=== PATIENT | female | born 1990 | race Native Hawaiian/Other Pacific Islander ===

== ENCOUNTER 2022-01-14 12:37 | Emergency (ER) | payer OTHER ==
[~2022-01-14] VITALS: Ht 170.2 cm; Wt 163.3 kg
[2022-01-14 12:50] VITALS: TEMP 97.8
[2022-01-14 14:17] LABS: PLATELET COUNT 290 K/uL (152-353)
[2022-01-14 15:51] VITALS: BP 129/87
== END 2022-01-14 15:51 | disposition home or self-care (01) ==
LOC: ED 12:37
PROVIDERS: Emergency Medicine
DX: B34.9 Viral infection, unspecified (principal); Z20.822 Contact with and (suspected) exposure to COVID-19
CPT/HCPCS: 80053; 85027; 87502; 87635; 87651; 99283; U0003

== ENCOUNTER 2023-02-26 13:18 | Day surgery (SDC) | payer OTHER ==
[~2023-02-26] VITALS: Ht 165.1 cm; Wt 68.0 kg
== END 2023-02-26 16:30 | disposition home or self-care (01) ==
LOC: OR 13:18
PROVIDERS: ATTEND Internal Medicine Gastroenterology
PROC: 0D748DZ Dilation of Esophagogastric Junction with Intraluminal Device, Via Natural or Artificial Opening Endoscopic (ICD-10-PCS; principal; 2023-02-26)
PROC: 0DB78ZX Excision of Stomach, Pylorus, Via Natural or Artificial Opening Endoscopic, Diagnostic (ICD-10-PCS; 2023-02-26)
DX: K20.90 Esophagitis, unspecified without bleeding (principal); K22.2 Esophageal obstruction; K44.9 Diaphragmatic hernia without obstruction or gangrene; K29.70 Gastritis, unspecified, without bleeding; K31.7 Polyp of stomach and duodenum
CPT/HCPCS: J2001; J2704; J7120